=== PATIENT | female | born 1940 | race Caucasian/White ===

== ENCOUNTER → 2021-03-17 | Outpatient (CLI) | payer MEDICARE | LOC: HEART CORB 13:24 | DX: I48.91 Unspecified atrial fibrillation (principal); I27.20 Pulmonary hypertension, unspecified; I08.3 Combined rheumatic disorders of mitral, aortic and tricuspid valves; R93.1 Abnormal findings on diagnostic imaging of heart and coronary circulation | CPT/HCPCS: 93306 ==